=== PATIENT | female | born 1975 | race Two or more races ===

== ENCOUNTER 2021-07-18 15:47 | Emergency (ER) | payer SELFPAY ==
[~2021-07-18] VITALS: Ht 170.2 cm; Wt 108.9 kg
[2021-07-18 17:49] VITALS: BP 104/67
== END 2021-07-18 17:53 | disposition home or self-care (01) ==
LOC: ER 15:47
DX: J20.9 Acute bronchitis, unspecified (principal); J45.909 Unspecified asthma, uncomplicated
CPT/HCPCS: 36415; 71045; 82728; 85379; 86141